=== PATIENT | female | born 1960 | race Two or more races ===

== ENCOUNTER 2018-10-07 08:18 | Emergency (ER) | payer OTHER ==
[~2018-10-07] VITALS: Ht 157.5 cm; Wt 101.6 kg
[~2018-10-07 08:18] MED LIST: CAPTOPRIL50 MG; IMODIUM A-D2 MG PO; PRILOSEC20 MG PO
[2018-10-07] MEDS ORDERED: COZAAR25 MG PO (08:26)
[2018-10-07] MEDS ORDERED: NORVASC5 MG PO (08:26)
[2018-10-07] MEDS ORDERED: SYNTHROID50 MCG PO (08:26)
[2018-10-07] MEDS ORDERED: HYDROCHLOROTH12.5 MG PO (08:27)
== END 2018-10-07 10:18 | disposition home or self-care (01) ==
LOC: ER 08:18
DX: K80.80 Other cholelithiasis without obstruction (principal)